=== PATIENT | female | born 1995 | race Caucasian/White ===

== ENCOUNTER 2021-03-14 20:09 | Emergency (ER) | payer OTHER ==
[~2021-03-14 20:09] MED LIST: CIPRO500 MG PO; DIFLUCAN100 MG PO; GLUCOSE TEST S1 EACH; LANTUS100 UNIT/1 SQ; NOVOLOG VI100 UNIT/1 SQ
[2021-03-14 22:36] LABS: BASOPHIL 0.7 % (0-2); EOSINOPHIL 1.4 % (0-5); HCT 39.6 % (37.0-47.0); HGB 13.1 g/dl (12.5-16.0); LYMPHOCYTE 35.2 % (15-48); MCH 29.4 pg (25.0-31.0); MCHC 33.1 g/dL (32.0-36.0); MCV 88.8 fL (78.0-100.0); MONOCYTE 7.1 % (0-12); MPV 11.4 fL (6.0-9.5); NEUTROPHIL 55.3 % (41-80); NRBC 0; PLT 205 K/uL (150-400); RBC 4.46 M/uL (4.20-5.40)
[2021-03-14 22:49] LABS: BUN/CREAT RATIO (CALC) 23.1 RATIO; CREATININE 1.08 mg/dL (0.51-0.95); POTASSIUM 3.7 mmol/L (3.5-5.1)
[2021-03-15] MEDS ORDERED: VIBRAMYCIN100 MG PO (00:26)
[2021-03-15] MEDS ORDERED: FIORICET1 EACH PO (00:26)
== END 2021-03-15 00:56 | disposition home or self-care (01) ==
LOC: FER 20:09
PROVIDERS: Nurse Practitioner Family
DX: G43.909 Migraine, unspecified, not intractable, without status migrainosus (principal); E10.9 Type 1 diabetes mellitus without complications; Z88.5 Allergy status to narcotic agent; Z88.0 Allergy status to penicillin
CPT/HCPCS: 36415; 70450; 80048; 85025; 96372; J1100; J1200; J1885; J2270; J2405; J3030; J7030

== ENCOUNTER 2021-10-11 13:11 | Day surgery (SDCO) | payer OTHER ==
[~2021-10-11] VITALS: Ht 177.8 cm; Wt 95.4 kg
[~2021-10-11 13:11] MED LIST changes: +FIORICET1 EACH PO; +VIBRAMYCIN100 MG PO
[2021-10-11 17:21] LABS: BASOPHIL 0.5 % (0-2); EOSINOPHIL 1.2 % (0-5); HCT 45.4 % (37.0-47.0); HGB 15.1 g/dl (12.5-16.0); LYMPHOCYTE 29.4 % (15-48); MCH 28.8 pg (25.0-31.0); MCHC 33.3 g/dL (32.0-36.0); MCV 86.6 fL (78.0-100.0); MONOCYTE 6.8 % (0-12); MPV 11.4 fL (6.0-9.5); NEUTROPHIL 61.9 % (41-80); NRBC 0; PLT 247 K/uL (150-400); RBC 5.24 M/uL (4.20-5.40); RDW 12.4 % (11.5-14.0); WBC 8.3 K/uL (4.0-10.5)
[2021-10-11 17:22] LABS: BILIRUBIN NEGATIVE (NEGATIVE); BLOOD NEGATIVE Ery/uL (NEGATIVE); CLARITY CLEAR (CLEAR); COLOR YELLOW (YELLOW); GLUCOSE (U) NORMAL (NORMAL); LEUKOCYTES NEGATIVE Leu/uL (NEGATIVE); NITRITE NEGATIVE (NEGATIVE); PROTEIN 1+ mg/dL (NEGATIVE); SPECIFIC GRAVITY 1.025 (1.001-1.030)
[2021-10-11 17:37] LABS: BACTERIA 1+
[2021-10-11 17:38] LABS: MUCOUS TRACE
[2021-10-11 17:48] LABS: ALBUMIN 3.3 g/dL (3.4-5.0); BILIRUBIN - TOTAL 0.5 mg/dL (0.2-1.0); BUN/CREAT RATIO (CALC) 9.9 RATIO; CREATININE 0.81 mg/dL (0.51-0.95); GLOBULIN (CALCULATION) 4.7 g/dL; POTASSIUM 3.7 mmol/L (3.5-5.1)
[2021-10-11 18:07] LABS: CORONAVIRUS 2019 SARS-COV-2 NEGATIVE (NEGATIVE); INFLUENZA A NAA NEGATIVE (NEGATIVE)
[2021-10-11] MEDS ORDERED: PRENATAL FORMU1 EACH PO (22:05)
[2021-10-11] MEDS ORDERED: [UNRECOGNIZED DRUG - OTHER] PO (22:05)
[2021-10-11] MEDS ORDERED: BIRTHCONTROL PILL PO (22:06)
[2021-10-11] MEDS ORDERED: HUMALOG SC (22:07)
[2021-10-12 08:11] LABS: HCT 37.4 % (37.0-47.0); HGB 12.3 g/dl (12.5-16.0); MCH 29.2 pg (25.0-31.0); MCHC 32.9 g/dL (32.0-36.0); MCV 88.8 fL (78.0-100.0); MPV 10.6 fL (6.0-9.5); RBC 4.21 M/uL (4.20-5.40); RDW 12.5 % (11.5-14.0); WBC 6.9 K/uL (4.0-10.5)
[2021-10-12 08:34] LABS: CREATININE 0.89 mg/dL (0.51-0.95); POTASSIUM 3.7 mmol/L (3.5-5.1)
[2021-10-12] MEDS ORDERED: OXY-IR 5MG5 MG PO (08:42)
[2021-10-12] MEDS ORDERED: ACETAMINOPHEN500 M1 PO (08:42)
[2021-10-12] MEDS ORDERED: COLACE100 MG PO (08:42)
[2021-10-12] MEDS ORDERED: MOTRIN600 MG PO (08:42)
== END 2021-10-12 10:33 | disposition home or self-care (01) ==
LOC: FER 13:11 → FOFB 20:21 → FER 21:48 → FOFB 23:36
PROVIDERS: Nurse Practitioner Family; ADMIT Student in an Organized Health Care Education/Training Program
DX: K35.33 Acute appendicitis with perforation, localized peritonitis, and gangrene, with abscess (principal); E10.9 Type 1 diabetes mellitus without complications; F90.9 Attention-deficit hyperactivity disorder, unspecified type; Z20.822 Contact with and (suspected) exposure to COVID-19; Z88.0 Allergy status to penicillin; Z88.5 Allergy status to narcotic agent
CPT/HCPCS: 36415; 80048; 80053; 81001; 85025; 87088; 94010; G0378; J1170; J1644; J1650; J2250; J2405; J2704; J2710; J3010; J7030; J7120; Q9967; U0002